=== PATIENT | female | born 2005 | race African-American/Black ===

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

== ENCOUNTER 2024-03-12 09:34 | Emergency (ER) | payer OTHER, SELFPAY ==
[2024-03-12] MEDS ORDERED: Dexamethasone 10 MG/ML VIAL ONE (09:52)
[2024-03-12] MEDS ORDERED: Ketorolac Tromethamine 30 MG (1 mL) VIAL ONE (09:52)
[2024-03-12] MEDS ORDERED: Acetaminophen 325 MG TAB ONE (09:55)
[2024-03-12] MEDS ORDERED: Bicillin LA 1.2 MILLION UNITS/2 ML SYRINGE IM SCH (10:15)
[2024-03-12] MEDS ORDERED: Bicillin LA 1.2 MILLION UNITS/2 ML SYRINGE ONE (10:25)
== END 2024-03-12 11:23 | disposition home or self-care (01) ==
LOC: ERS 09:34
DX: J02.0 Streptococcal pharyngitis (principal); F17.290 Nicotine dependence, other tobacco product, uncomplicated
CPT/HCPCS: 96372; 99283; J0561; J1100; J1885

== ENCOUNTER 2024-12-08 10:08 | Emergency (ER) | payer OTHER ==
[2024-12-08 11:17] LABS: Pregnancy Test - Urine (BHCG) Negative (Negative); Pregu Control Background? CLEAR/WHITE (CLR/WHITE); Pregu Control Bar Appear? YES (CONTROL BAR)
[2024-12-08 11:20] LABS: Bacteria/HPF 1+ HPF (None Seen); CAUTI Indications for Culture Dysuria,urgency,freq; Glucose, Urine (Dipstick) Normal (Negative); Leukocyte Negative Leu/uL (Negative); Protein, Urine (Dipstick) 30 mg/dL (Neg-Trace); RBC/HPF 0-3 HPF (0-3); Specific Gravity, Urine 1.032 (1.002-1.036)
[2024-12-08 11:21] LABS: Urine Culture Reflex No No
== END 2024-12-08 12:05 | disposition home or self-care (01) ==
LOC: ERS 10:08
DX: R11.2 Nausea with vomiting, unspecified (principal); F17.290 Nicotine dependence, other tobacco product, uncomplicated
CPT/HCPCS: 81001; 81025; 99283; Q0162